=== PATIENT | male | born 1955 | race African-American/Black ===

== ENCOUNTER 2019-12-14 09:03 | Outpatient (CLI) | payer MEDICARE, BC | END 2019-12-14 23:59 | disposition home or self-care (01) | LOC: CT 09:03 | DX: J43.9 Emphysema, unspecified (principal); R91.1 Solitary pulmonary nodule; I25.10 Atherosclerotic heart disease of native coronary artery without angina pectoris; K76.89 Other specified diseases of liver; K57.30 Diverticulosis of large intestine without perforation or abscess without bleeding; M47.819 Spondylosis without myelopathy or radiculopathy, site unspecified; Z90.49 Acquired absence of other specified parts of digestive tract | CPT/HCPCS: 71250-TC ==